=== PATIENT | male | born 1980 | race Two or more races ===

== ENCOUNTER 2024-05-20 15:14 | Outpatient (RCR) | payer MEDICAID, SELFPAY ==
--- NOTE | 2024-05-20 15:43 | PTNOTE_ITS ---
PT OP Initial Eval Patient Information Outpatient Physical Therapy Treatment Date: 05/20/24 Visit Reasons: Left hand/finger pain Medical Diagnosis: s61.221a; M79.645 Treatment Dx #1: Left Hand Pain Treatment Dx #2: Left Hand Weakness Start of Care: 05/20/24 Smoking Status Smoking Status: Never smoker Initial Assessment Subjective: Pt is a 44 y/o male s/p left index laceration in Jan 2024 via electric saw. Pt went to [facility]'s ER and finger was stitched. Xray negative for fracture. Pt still has limitation with gripping, lifting, chores, self care, work duties, yardwork, and performing recreational activities. 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 Pt will benefit from physical therapy to increase ROM, strength, and work on hand dexterity. Short Term and Nursing Home Goals 1) Increase left index finger AROM WNL in 6 wks to be able to make a full fist 2) Increase left sagger maker strength to 90 lbs in 6 wks to be able to perform gripping activities 3) Decrease hand pain to 2/10 in 6 wks to be able to perform recreational activities 4) Indep with HEP Treatment Plan 1) Manual Therapy 2) Therapeutic Activities 3) Therapeutic Exercises 4) Modalities (ice, heat) Frequency and Duration: 2 x wk for 6 wks Certification Dates: 05/20/24 to 08/18/24 Procedure Charges OP PT Eval Mod Complex 30 minutes: Yes
--- NOTE | 2024-06-04 15:27 | PT.ODS1RPT ---
PT OP Progress/Discharge Note Date of Service: 06/04/24 Progress Note/DC Note Progress Note/Discharge Note: DC Note Patient Information Visit Reasons: Left hand/finger pain Service Discharge Date: 06/04/24 Status Assessment: Pt has been seen for inital evaluation 05/20/24. Pt no showed 05/27, 05/29, and 06/04 appt. At this time Pt will be d/c from care due to non-compliance per attendance policy. Pt did not meet set goals in therapy; thank you for your referrals.
== END 2024-05-31 23:59 | disposition home or self-care (01) ==
LOC: CPTX 15:14
PROVIDERS: PCP Surgery Surgery of the Hand; Referring Provider Surgery Surgery of the Hand; Visit Provider Surgery Surgery of the Hand
DX: M79.642 Pain in left hand (principal); R53.1 Weakness; S61.221D Laceration with foreign body of left index finger without damage to nail, subsequent encounter; W27.0XXD Contact with workbench tool, subsequent encounter
CPT/HCPCS: 97162